=== PATIENT | female | born 1955 | race Caucasian/White ===

== ENCOUNTER 2017-01-15 15:57 | Inpatient (IN) | payer BC ==
--- NOTE | ~2017-01-15 | PUL ---
[address] [place]. [address] NAME: ZACHARY HAQ : 53 STATUS : DIS IN PAT#: [id number] AGE: 61 ADM/REG DATE : 01/15/17 MR#: [id number] REPORT SERV DATE: 01/23/17 DICTATED BY: ANIKA CARBAJAL DATE: 01/22/17 REPORT STATUS : Draft TRANSCRIBED BY: MODL DATE: 01/22/17 PULMONARY FUNCTION TEST PROCEDURE PERFORMED: Overnight oximetry. Study performed on room air. Recorded time was slightly over six hours. The patient had mild desaturation though the longest continuous desaturation was only 1 minute and 40 seconds. The patient did have a high desaturation event index. IMPRESSION: Borderline study, the patient did not meet the strictest criteria for supplemental oxygen at night, but does have some desaturation and meets the lower criteria based on just the total amount of time. Clinical correlation is recommended. If clinically indicated consider a formal sleep study. PEDRO LUIS/ENZO Anika Carbajal M.D. / [id number] CC: Tc Mar CHELSEY
--- NOTE | ~2017-01-15 | HP ---
History And Physical [id number] [facility] [place]. [address] NAME: ZACHARY HAQ : 53 STATUS : ADM IN [facility]#: [id number] AGE: 61 ADM/REG DATE : 01/15/17 MR#: [id number] REPORT SERV DATE: 01/15/17 DICTATED BY: TAYLER MORRIS DATE: 01/15/17 REPORT STATUS : Draft TRANSCRIBED BY: MODL DATE: 01/15/17 DATE OF ADMISSION: 01/15/2017 IDENTIFYING DATA: A 61-year-old white female, whose PCP is Dr. Elizabeth Odom; Podiatry, Dr. Serrano; Endocrinology, Dr. Graff; primary therapist used to be Dr. Thayer and then her insurance changed, she does not have one now; Sleep Medicine, Dr. Steve. CHIEF COMPLAINT: Shortness of breath. HISTORY OF PRESENT ILLNESS: This history of present illness is obtained by talking directly with the ER provider as well as with the patient and I reviewed the ER chart and [employer]. The patient has chronic stable dyspnea that got much worse over the last three-five days. It got to the point where she had not just dyspneic on exertion, but also dyspneic at rest. She was not able to sleep well. She had orthopnea and PND. She states that she has gained 30 pounds in the last month. Her legs are much more swollen than normal. She has no fever, no cough. She states she went to her PCP and they ordered an outpatient echo, but she just has not been able to get it done. No medication changed. In the ER, she was found to be uncomfortable and short of breath, and we were asked to see her and admit her to the hospital. REVIEW OF SYSTEMS: She states she has some vague anterior chest pain versus what she calls heartburn. She has nausea that is chronic. She has some dysuria and has a hard time emptying her bladder. She states she has to stand up partially to do it. She is, according to her, not very hungry except at 3 o'clock in the morning and then she can eat like crazy. She denies fever, vomiting, diarrhea, rectal bleeding, melena. She has had some recent right hand tremor. She states she has had abdominal pain "all of my life." She states she is not wearing any home oxygen. PAST MEDICAL HISTORY: She claims allergy to penicillin, ibuprofen, amoxicillin. She denies any history of asthma, COPD, myocardial infarction, peptic ulcer, biliary tract disease, liver disease, kidney stones. She has diabetes mellitus type 2 for more than 10 years. She has significant peripheral neuropathy. She also has a lot of restless legs, pain and fibromyalgia along with osteoarthritis and a chart history of seronegative rheumatoid arthritis for which she used to be on Humira. Complicating her peripheral neuropathy and diabetes, she has had osteomyelitis and has recently had multiple surgeries for this with Dr. Serrano including on 11/02/2016, for a delayed closure of previous surgery from 10/27/2016 where he drained abscess of right 2nd toe and did amputate the distal right 2nd toe for osteomyelitis and then back on 09/26/2016, [facility] [address] [address] NAME: ZACHARY HAQ : 53 STATUS : ADM IN PAT#: [id number] AGE: 61 ADM/REG DATE : 01/15/17 MR#: [id number] REPORT SERV DATE: 01/15/17 DICTATED BY: TAYLER MORRIS DATE: 01/15/17 REPORT STATUS : Draft TRANSCRIBED BY: ENZO DATE: 01/15/17 she had a delayed closure of a surgery he had done on 09/21/2016, where he resected a portion of the 2nd toe that had osteomyelitis. She has hypertension. She has significant obesity with obstructive sleep apnea, but admits she cannot wear her CPAP very comfortably, so she does not. She has stage 3 chronic kidney disease. She has chronic leg stasis changes with previous cellulitis. She has a history of iron deficiency anemia. She has had previous major depression. She has in the past what she calls stress-induced seizures and she states she had a previous thalamic stroke, but she has no idea which side it was on. She states she has large thyroid nodules and she had previous endometrial cancer treated with surgery. HOME MEDICATIONS: Artificial tears p.r.n., Voltaren 1% gel topical q.i.d. to the right hand, Apresoline 25 mg t.i.d., NovoLog in her insulin pump, Prevacid 30 mg daily, Paxil 40 mg daily, Mirapex 3 mg every evening and she states she occasionally has to take a second dose. PAST SURGICAL HISTORY: She has had a hysterectomy for cancer, right total knee arthroplasty, and right cataract surgery. SOCIAL HISTORY: She denies tobacco or alcohol intake. She is a retired [employer] teacher. She lives alone. She used to use a cane, but she has had to use a walker since her August and September surgeries. FAMILY HISTORY: Mother with some type of cancer. Father had diabetes and heart attack. DIAGNOSTIC DATA: Chest x-ray as a single portable film today reveals a shallow inspiratory size, but the right side of her heart looks especially large. There is some haziness in the right lung base, but that may just be related to obesity and the shallow inspiratory size, per my interpretation. EKG done today at 1316 hours reveals sinus arrhythmia, LVH voltage is otherwise unremarkable, per my interpretation. Sodium 136, potassium 4.7, chloride 102, CO2 is 29, BUN 36, creatinine 1.56, glucose is 218, calcium 9.3, magnesium 2.0. Troponin less than 0.02. B-natriuretic peptide is 52.4. Her last A1c on 10/27/2016 was 10.2. Today's white count is 17.3, hemoglobin 9.1, and platelets are 253,000. Her previous white count was 8.6 on 11/02/2016. Today's pro-time is 14.8, INR 1.2, and PTT is 31.1. Urinalysis today as a voided clean catch, protein 30, hyaline casts 8, it is otherwise unremarkable. PHYSICAL EXAMINATION: VITAL SIGNS: Temp 98, pulse 80, respirations 18, blood pressure 149/114, O2 saturation is 97% on 2 L. GENERAL: A well-developed, obese female, who appears restless and uncomfortable and short of breath at rest. HEENT: Head is atraumatic. Pupils are equal, round, and reactive to light. Extraocular motions are intact. No scleral icterus noted. Ear canals and TMs unremarkable. Normal hearing. No inflammatory changes noted to the ears externally. Nose, noninflamed externally. Septum midline. Nares patent. Mouth, moist. Good gag. No redness of the throat, gums, or lips. NECK: Supple. No lymph node or thyroid enlargement. The carotids have good pulses. No History And Physical [id number] [place]. [address] NAME: ZACHARY HAQ : 53 STATUS : ADM IN PAT#: [id number] AGE: 61 ADM/REG DATE : 01/15/17 MR#: [id number] REPORT SERV DATE: 01/15/17 DICTATED BY: TAYLER MORRIS DATE: 01/15/17 REPORT STATUS : Draft TRANSCRIBED BY: MODL DATE: 01/15/17 bruits. There is jugular venous distention of about 5 cm. LUNGS: Shallow inspiratory size. She is tachypneic at 22 breaths per minute. Fair air flow. HEART: Regular rate and rhythm without gallop, click, murmur, or rub. ABDOMEN: Very obese. Bowel sounds positive. Soft, nondistended. When I palpate, she states she is mildly tender diffusely and she states it has been that way her entire life. EXTREMITIES: She has 3+ edema on her feet. She has a dressing over her left first toe. She has 2+ calf edema, 1+ thigh edema bilaterally. She has some chronic venous stasis changes noted. NEUROLOGIC: She is alert, oriented, and cooperative. She is uncomfortable. She has restlessness especially of her legs. She has a mild tremor at rest on her right arm. No Babinski. No clonus noted. Motor strength is 3/5 in all four extremities. Cranial nerves 2 through 12 grossly normal. ASSESSMENT: 1. Acute decompensation of cor pulmonale. 2. Leukocytosis of unclear etiology. 3. Uncontrolled hypertension. 4. See past medical history. PLAN: 1. Admit to a cardiac telemetry. 2. We are going to check a blood gas. We are going to get a new echocardiogram with attempt to see her pulmonary artery pressures. We will initiate diuresis. We will supplement her with oxygen if needed. We will try to get her to wear her CPAP with sleep. She does not want to start her insulin pump until her brings it in tomorrow, so we will use some basal bolus in the meantime. 3. We will check a D-dimer. If it is elevated, we will start with a V/Q scan since she does have a creatinine elevation of 1.56. BERNIE/ENZO Tayler Morris M.D. / [id number] CC: Tc Mcwilliams M.D.
--- NOTE | ~2017-01-15 | DS ---
Discharge Summary [address] [place]. [address] NAME: ZACHARY HAQ : 53 STATUS : DIS IN PAT#: [id number] AGE: 61 ADM/REG DATE : 01/15/17 MR#: [id number] REPORT SERV DATE: 01/24/17 DICTATED BY: CECY AVENDANO DATE: 01/20/17 REPORT STATUS : Draft TRANSCRIBED BY: MODBrionna DATE: 01/20/17 ADMISSION DATE: 01/15/2017 DISCHARGE DATE: 01/20/2017 The patient was admitted to the Hospitalist Service. CONSULTANTS: Dr. Colt Gonzalez, Infectious Disease and Dr. Serrano, Podiatry. DISCHARGE DIAGNOSES: 1. Cor pulmonale with acute decompensation, resolved. 2. Left lower extremity cellulitis with toe wound. Wound culture grew MRSA and group B Strep. 3. Diabetes mellitus type 2, uncontrolled. Hemoglobin A1c 8.7. Currently on insulin pump at 50% of her basal rate. 4. Elevated D-dimer. 5. Hypertension. 6. Chronic kidney disease, stage 3. 7. Chronic anemia. 8. Obstructive sleep apnea, intolerant of CPAP. 9. Morbid obesity. 10.Restless legs syndrome. IMAGING AND DIAGNOSTICS: 1. 01/16/2017, echocardiogram revealed left ventricular systolic function intact at 62%, mild diastolic dysfunction with mild left atrial dilatation, right ventricle systolic function intact. No significant valvular disease. 2. 01/17/2017, venous duplex of left lower extremity shows no DVT, however, reactive lymph nodes in the left inguinal region may be reactive. 3. 01/19/2017, a chest x-ray, PA and lateral, showed developing prominence of bronchovesicular markings, may represent mild edema or be related to chronic bronchitis. 4. Left foot x-ray on 01/15/2017 showed calcaneal spurs. No evidence of acute left foot abnormality. 5. 01/19/2017, ventilation-perfusion scan, rule out PE. Study is very low probability for pulmonary embolus, central deposition of the ventilation tracers consistent with airway disease. 6. Bone scan on 01/16/2017 showed persistent bony remodeling in the left midfoot. No destructive process identified in its region on plain radiographs and the finding is unchanged from September of 2016. Concern was then for the right foot which does not show abnormal uptake on today's study. Findings on today's and the prior 3-phase examination make simply be due to severe degenerative arthropathy. No firm evidence of osteonecrosis is found. DISCHARGE LABORATORY STUDIES: 1. On 01/20/2017, CBC revealed a white count of 8.5, hemoglobin 8.2, hematocrit 26.2, platelets 321,000. Discharge Summary [address] [place]. [address] NAME: ZACHARY HAQ : 53 STATUS : DIS IN PAT#: [id number] AGE: 61 ADM/REG DATE : 01/15/17 MR#: [id number] REPORT SERV DATE: 01/24/17 DICTATED BY: CECY AVENDANO DATE: 01/20/17 REPORT STATUS : Draft TRANSCRIBED BY: ENZO DATE: 01/20/17 2. Discharge basic metabolic panel on 01/20/2017 revealed a sodium of 134, potassium 4.1, CO2 of 29, BUN 44, creatinine 1.61, GFR 34, glucose 178, calcium 9.4, magnesium 2.3. 3. 01/19/2017, final wound culture revealed abundant growth of methicillin-resistant Staphylococcus aureus sensitive to vancomycin with group Strep B. 4. D-dimer quantitative on 01/15/2017 resulted 0.99. HISTORY OF PRESENT ILLNESS: For complete history, please refer to admission H and P by Dr. Johnson Morris on 01/15/2017. Briefly, Ms. Haq is a 61-year-old, obese, female, who presented to the emergency room with shortness of breath. She reports that she has gained over 30 pounds in the last month. Her legs were swollen more than normal. She has orthopnea and PND and the Hospitalist Service was asked to admit the patient for further evaluation and treatment. HOSPITAL COURSE: Ms. Haq was admitted to a telemetry bed with admission diagnosis of cor pulmonale and hypertension uncontrolled and shortness of breath. An echocardiogram was requested; results are as above. She was provided with DVT prophylaxis, 2 g sodium, 1500 mL fluid restriction diet and scheduled IV diuresis, Bumex 2 mg IV q.8 hours. Her insulin pump was discontinued on admission and she was given a dose of NPH insulin. A D-dimer was ordered; results are as above. If the D-dimer was elevated, she was to have a V/Q ventilation scan to rule out a DVT. However, bone scan was ordered by Dr. Serrano to rule out osteomyelitis and since the patient had the bone scan initially, she was unable to have a V/Q scan for at least [address] Serrano did follow the patient throughout her hospitalization. I have consulted Infectious Disease on 01/16/[address] Serrano's request. I did start Ms. Haq on vancomycin 1 g IV on this date, with pharmacy to follow up with dosing. With her left lower extremity swelling, I did order a venous duplex to rule out DVT; results are as above. Later in the day on 01/16/2017, Dr. Jose Cruz Gonzalez saw Ms. Haq in consultation and added cefepime 2 g IV q.12. Later on the afternoon of 01/16/2017, Ms. Haq was placed on an IV insulin drip and placed her home insulin pump as she had previously hypoglycemic episodes in the hospital when she was on her insulin pump. On 01/17/2017, Dr. Gonzalez discontinued Ms. Haq IV cefepime and continued her IV vancomycin. She had some issues with constipation. Stool softeners and laxatives were added on this date. With her IV diuresis, she was doing well. Her shortness of breath improved. Her IV antibiotics were continued. The bone scan results showed no evidence of osteomyelitis as above. She was back on her insulin pump on 01/18/2017 at half of her basal rate with recommendations from the family educator, Monica De La O RN. Her shortness of breath improved on 01/19/2017. She did complain of persistent shortness of breath; therefore, the V/Q scan was performed, which showed low probability for PE. She was given further IV diuresing with Bumex scheduled doses on 01/18/2017 and 01/19/2017. On 01/19/2017, Dr. Gonzalez ordered a PICC line for home IV antibiotics, vancomycin for a total of two weeks. She did have some complaints of yeast like rash in the inguinal folds and abdominal folds. She was treated with nystatin powder for this. I did do an overnight pulse oximetry from 01/19/2017 through 01/20/2017 which showed several episodes of desaturation which qualified her for home oxygen. However, with previous home CPAP prescription, the patient was unable to qualify to receive home oxygen per Case Management. On 01/20/2017, she continued to improve. Her vital signs were stable. She was no longer complaining of any dyspnea on exertion and her weight was down from admission. On the afternoon of 01/20/2017, she received a PICC line for home antibiotics. Initially, Case Discharge Summary [address] [place]. [address] NAME: ZACHARY HAQ : 53 STATUS : DIS IN PAT#: [id number] AGE: 61 ADM/REG DATE : 01/15/17 MR#: [id number] REPORT SERV DATE: 01/24/17 DICTATED BY: CECY AVENDANO DATE: 01/20/17 REPORT STATUS : Draft TRANSCRIBED BY: ENZO DATE: 01/20/17 Management stated that they have searched over 9 home health care companies who were unable to provide care for the patient. However, at the end of the day, they did arrange for a home health care company to provide IV antibiotic infusion for Ms. Haq at home after Ms. Haq had a friend come and learn how to do the home infusion initially. So, at the end of the day, it was felt that she was able to be discharged home safely with her PICC line intact and follow up arranged for the patient. So, she is discharged home in stable condition on the early evening of 01/20/2017. DISCHARGE INSTRUCTIONS: Include: 1. Diet 1800 calorie ADA diet is recommended. 2. Activity as tolerated. DISCHARGE MEDICATIONS: 1. Carvedilol 6.25 mg p.o. b.i.d. 2. Colace 100 mg p.o. b.i.d. 3. Insulin pump at 50% of her basal rate. 4. Nystatin powder topically three times a day to affected areas. 5. Paxil 40 mg p.o. daily. 6. Mirapex 3 mg p.o. daily. 7. Spironolactone 50 mg p.o. with breakfast. 8. Trazodone 200 mg p.o. at bedtime. 9. Apresoline 25 mg p.o. t.i.d. 10.Silvadene cream to both legs as directed. 11.Prevacid 30 mg p.o. daily with breakfast. 12.Demadex 20 mg p.o. b.i.d. 13.Artificial tears p.r.n. both eyes. 14.Vancomycin 1 g IV q.24 hours for a total of two weeks. 15.Voltaren topical four times a day p.r.n. In addition, Ms. Haq was instructed to elevate her left lower extremity as much as possible. She has a new patient followup with Payton Cooper, nurse practitioner at the diagnostic center on 01/26/2017 at 10:45. She was also instructed to follow up with Dr. Serrano in one week. We did discuss following up with Dr. Graff within the next two weeks if she has a new insulin pump at home that is waiting for application and instruction. CIPRIANO/ENZO YNES Figueroa / [id number] CC: Yoana Burkett M.D. [facility] Discharge Summary [address] [address] NAME: ZACHARY HAQ : 53 STATUS : DIS IN [facility]#: [id number] AGE: 61 ADM/REG DATE : 01/15/17 MR#: [id number] REPORT SERV DATE: 01/24/17 DICTATED BY: CECY AVENDANO DATE: 01/20/17 REPORT STATUS : Draft TRANSCRIBED BY: ENZO DATE: 01/20/17 Devan Hammond M.D. PAYTON COOPER NP
[2017-01-15 14:33] LABS: WBC (NOT ORDERED) (RFLEX) 0 (0-5)
[2017-01-15 14:37] LABS: BASOPHILS 0.2 %; BASOPHILS ABSOLUTE 0.03 10/3/uL (0.0-0.16); EOSINOPHILS 0.6 %; HEMOGLOBIN 9.1 g/dL (12.0-16.0); IMMATURE GRANULOCYTES 0.3 %; IMMATURE GRANULOCYTES ABSOLUTE 0.06 10/3/uL (0.0-0.11); LYMPHOCYTES 4.6 %; LYMPHOCYTES ABSOLUTE 0.79 10/3/uL (0.67-4.30); MEAN CORPUS HGB CONC 31.8 g/dL (32.0-36.0); MEAN CORPUSCULAR HEMOGLOB 26.4 pg (26.0-34.0); MEAN CORPUSCULAR VOLUME 82.9 fL (80-100); MEAN PLATELET VOLUME 10.1 fL (9.2-13.0); MONOCYTES 4.6 %; MONOCYTES ABSOLUTE 0.79 10/3/uL (0.21-1.20); NEUTROPHILS 89.7 %; NEUTROPHILS ABSOLUTE 15.53 10/3/uL (2.02-8.40); PLATELET COUNT 253 10/3/uL (150-400); RBC DISTRIBUTION WIDTH 15.4 % (12.0-16.0); RED CELL COUNT 3.45 10/6/uL (4.0-5.6)
[2017-01-15 14:38] LABS: ER CBC TAT 0 Hrs 05 Mins; HEMATOCRIT 28.6 % (36.0-48.0); MANUAL DIFF NO %; WHITE BLOOD CELLS 17.3 10/3/uL (4.5-10.5)
[2017-01-15 14:43] LABS: ASCORBIC ACID (UR NOT ORDER) NEG (NEG); BILIRUBIN, URINE NEGATIVE (NEG); ER URINALYSIS TAT 0 Hrs 10 Mins; KETONE, URINE NEGATIVE (NEG); LEUKOCYTE ESTERASE(NOT OR NEG (NEG); NITRITE (URINE) NEG (NEG)
[2017-01-15 14:45] LABS: INTERNATIONAL NORMAL RATI 1.2 UNITS (-); PARTIAL THROMBO TIME 31.1 SEC (22.5-37.2); PROTIME (NOT ORD) 14.8 SEC (12.0-14.5)
[2017-01-15 14:54] LABS: BUN (BLOOD UREA NITROGEN) 36 MG/DL (6-23); CALCIUM, SERUM 9.3 MG/DL (8.5-10.4); CHEST PAIN PROFILE TAT 0 Hrs 21 Mins; CHLORIDE, SERUM 102 MMOL/L (96-112); CO2 (CARBON DIOXIDE) 29 MMOL/L (24-34); CREATININE 1.56 MG/DL (0.55-1.02); GFR AFRICAN AMERICAN 41 ML/MIN (>=60); GFR NON AFRICAN AMERICAN 35 ML/MIN (>=60); GLUCOSE, SERUM 218 MG/DL (60-99); POTASSIUM, SERUM 4.7 MMOL/L (3.5-5.3); SODIUM, SERUM 136 MMOL/L (135-148); TROPONIN I <0.02 NG/ML (<0.05)
[~2017-01-15 15:57] MED LIST: *UNABLE2; APRES25 PO; APRES50 PO; COREG3 PO; DEMA20 PO; DURICEF PO; FLORASTOR250 MG PO; GLUCPH PO; HUMAPUMP SC; HYZAAR1 TAB PO; IODOSORB TOP; K500 PO; KLOR-CON M2020 MEQ PO; L40 PO; LEVAQUIN750 MG PO; MAGOX4 PO; MIRAPEX1 MG PO; MIRAPEX1.5 MG PO; NORCO1 TA1 PO; NOVLOGPUMP SC; NYSTATPOW TOP; PAX20 PO; PAXIL40 MG PO; PREV30 PO; SANTYL OINTMENT TOP; SAS500 PO; SPIRO50 PO; TRAZ100 PO; TRAZ50 PO; VIBRATAB100 MG PO
[2017-01-15] MEDS ORDERED: PAXIL40 MG PO (16:17)
[2017-01-15] MEDS ORDERED: PREV30 PO (16:17)
[2017-01-15] MEDS ORDERED: MIRAPEX1.5 MG PO (16:18)
[2017-01-15] MEDS ORDERED: SPIRO50 PO (16:18)
[2017-01-15] MEDS ORDERED: TRAZ100 PO (16:18)
[2017-01-15] MEDS ORDERED: NOVLOGPUMP SC (16:19)
[2017-01-15] MEDS ORDERED: DEMA20 PO (16:19)
[2017-01-15] MEDS ORDERED: APRES25 PO (16:19)
[2017-01-15] MEDS ORDERED: SILVER SULFADIAZINE TOP (16:22)
[2017-01-15] MEDS ORDERED: REFRESH OPH (16:23)
[2017-01-15] MEDS ORDERED: EYE INJECTIONS IO (16:23)
[2017-01-15] MEDS ORDERED: VOLTAREN1 % TOP (16:29)
[2017-01-15] MEDS ORDERED: COREG3 PO (16:35)
[2017-01-15 16:38] LABS: PROCALCITONIN <0.05 ng/mL (<0.5)
[2017-01-15 20:12] LABS: ALBUMIN 3.4 G/DL (3.5-5.0); DIRECT BILIRUBIN 0.1 MG/DL (0.0-0.4); INDIRECT BILIRUBIN(NOT ORDER) 0.3 MG/DL (0.1-0.9); SGOT(AST) 11 U/L (5-40); SGPT(ALT) 21 U/L (5-65); TOTAL BILIRUBIN 0.4 MG/DL (0-1.2); TOTAL PROTEIN 7.6 G/DL (6.0-8.5)
[2017-01-15 20:17] LABS: ALKALINE PHOSPHATASE 146 U/L (45-117)
[2017-01-16 06:23] LABS: BASOPHILS 0.2 %; BASOPHILS ABSOLUTE 0.02 10/3/uL (0.0-0.16); EOSINOPHILS 0.3 %; EOSINOPHILS ABSOLUTE 0.04 10/3/uL (0.0-0.53); HEMOGLOBIN 8.8 g/dL (12.0-16.0); IMMATURE GRANULOCYTES 0.2 %; IMMATURE GRANULOCYTES ABSOLUTE 0.02 10/3/uL (0.0-0.11); LYMPHOCYTES 7.3 %; LYMPHOCYTES ABSOLUTE 0.87 10/3/uL (0.67-4.30); MANUAL DIFF NO %; MEAN CORPUS HGB CONC 31.4 g/dL (32.0-36.0); MEAN CORPUSCULAR HEMOGLOB 26.3 pg (26.0-34.0); MEAN CORPUSCULAR VOLUME 83.8 fL (80-100); MEAN PLATELET VOLUME 10.5 fL (9.2-13.0); MONOCYTES 5.1 %; MONOCYTES ABSOLUTE 0.61 10/3/uL (0.21-1.20); NEUTROPHILS 86.9 %; NEUTROPHILS ABSOLUTE 10.39 10/3/uL (2.02-8.40); PLATELET COUNT 261 10/3/uL (150-400); RBC DISTRIBUTION WIDTH 15.8 % (12.0-16.0); RED CELL COUNT 3.34 10/6/uL (4.0-5.6)
[2017-01-16 06:41] LABS: A/G RATIO 0.8 (0.7-1.9); ALBUMIN 3.3 G/DL (3.5-5.0); ALKALINE PHOSPHATASE 137 U/L (45-117); BUN (BLOOD UREA NITROGEN) 38 MG/DL (6-23); CALCIUM, SERUM 9.7 MG/DL (8.5-10.4); CHLORIDE, SERUM 99 MMOL/L (96-112); CO2 (CARBON DIOXIDE) 29 MMOL/L (24-34); CREATININE 1.73 MG/DL (0.55-1.02); GFR AFRICAN AMERICAN 36 ML/MIN (>=60); GFR NON AFRICAN AMERICAN 31 ML/MIN (>=60); GLOBULIN 4.2 G/DL (2.5-4.1); GLUCOSE, SERUM 276 MG/DL (60-99); POTASSIUM, SERUM 4.4 MMOL/L (3.5-5.3); SGOT(AST) 12 U/L (5-40); SGPT(ALT) 20 U/L (5-65); SODIUM, SERUM 134 MMOL/L (135-148); TOTAL BILIRUBIN 0.7 MG/DL (0-1.2); TOTAL PROTEIN 7.5 G/DL (6.0-8.5)
[2017-01-17 04:44] LABS: BASOPHILS 0.3 %; BASOPHILS ABSOLUTE 0.03 10/3/uL (0.0-0.16); EOSINOPHILS 1.1 %; EOSINOPHILS ABSOLUTE 0.11 10/3/uL (0.0-0.53); HEMOGLOBIN 8.1 g/dL (12.0-16.0); IMMATURE GRANULOCYTES 0.3 %; IMMATURE GRANULOCYTES ABSOLUTE 0.03 10/3/uL (0.0-0.11); LYMPHOCYTES 10.9 %; LYMPHOCYTES ABSOLUTE 1.07 10/3/uL (0.67-4.30); MEAN CORPUS HGB CONC 32.9 g/dL (32.0-36.0); MEAN CORPUSCULAR HEMOGLOB 28.1 pg (26.0-34.0); MEAN CORPUSCULAR VOLUME 85.4 fL (80-100); MEAN PLATELET VOLUME 10.6 fL (9.2-13.0); MONOCYTES 6.2 %; MONOCYTES ABSOLUTE 0.61 10/3/uL (0.21-1.20); NEUTROPHILS 81.2 %; NEUTROPHILS ABSOLUTE 7.94 10/3/uL (2.02-8.40); PLATELET COUNT 271 10/3/uL (150-400); RED CELL COUNT 2.88 10/6/uL (4.0-5.6); WHITE BLOOD CELLS 9.8 10/3/uL (4.5-10.5)
[2017-01-17 04:47] LABS: HEMATOCRIT 24.6 % (36.0-48.0); MANUAL DIFF NO %
[2017-01-17 04:57] LABS: ALBUMIN 3.1 G/DL (3.5-5.0); CALCIUM, SERUM 9.3 MG/DL (8.5-10.4); CHLORIDE, SERUM 100 MMOL/L (96-112); CO2 (CARBON DIOXIDE) 29 MMOL/L (24-34); CREATININE 1.83 MG/DL (0.55-1.02); GFR AFRICAN AMERICAN 34 ML/MIN (>=60); GFR NON AFRICAN AMERICAN 29 ML/MIN (>=60); PHOSPHORUS, SERUM 4.1 MG/DL (2.5-4.5); POTASSIUM, SERUM 4.1 MMOL/L (3.5-5.3); SODIUM, SERUM 138 MMOL/L (135-148)
[2017-01-17 05:00] LABS: BUN (BLOOD UREA NITROGEN) 43 MG/DL (6-23); GLUCOSE, SERUM 162 MG/DL (60-99)
[2017-01-18 05:29] LABS: BUN (BLOOD UREA NITROGEN) 42 MG/DL (6-23); CALCIUM, SERUM 9.5 MG/DL (8.5-10.4); CHLORIDE, SERUM 102 MMOL/L (96-112); CO2 (CARBON DIOXIDE) 26 MMOL/L (24-34); CREATININE 1.54 MG/DL (0.55-1.02); GFR AFRICAN AMERICAN 41 ML/MIN (>=60); GFR NON AFRICAN AMERICAN 36 ML/MIN (>=60); GLUCOSE, SERUM 158 MG/DL (60-99); POTASSIUM, SERUM 4.5 MMOL/L (3.5-5.3); SODIUM, SERUM 137 MMOL/L (135-148)
[2017-01-18 05:41] LABS: BASOPHILS 0.3 %; BASOPHILS ABSOLUTE 0.02 10/3/uL (0.0-0.16); EOSINOPHILS 2.2 %; EOSINOPHILS ABSOLUTE 0.17 10/3/uL (0.0-0.53); HEMOGLOBIN 7.9 g/dL (12.0-16.0); IMMATURE GRANULOCYTES 0.4 %; IMMATURE GRANULOCYTES ABSOLUTE 0.03 10/3/uL (0.0-0.11); LYMPHOCYTES 11.2 %; LYMPHOCYTES ABSOLUTE 0.88 10/3/uL (0.67-4.30); MEAN CORPUSCULAR VOLUME 85.5 fL (80-100); MEAN PLATELET VOLUME 11.7 fL (9.2-13.0); MONOCYTES ABSOLUTE 0.47 10/3/uL (0.21-1.20); NEUTROPHILS 79.9 %; NEUTROPHILS ABSOLUTE 6.28 10/3/uL (2.02-8.40); PLATELET COUNT 295 10/3/uL (150-400); RED CELL COUNT 3.04 10/6/uL (4.0-5.6); WHITE BLOOD CELLS 7.9 10/3/uL (4.5-10.5)
[2017-01-18 05:45] LABS: MANUAL DIFF NO %; MEAN CORPUS HGB CONC 30.4 g/dL (32.0-36.0)
[2017-01-19 04:35] LABS: BASOPHILS 0.2 %; BASOPHILS ABSOLUTE 0.02 10/3/uL (0.0-0.16); EOSINOPHILS ABSOLUTE 0.24 10/3/uL (0.0-0.53); HEMOGLOBIN 8.1 g/dL (12.0-16.0); IMMATURE GRANULOCYTES 0.1 %; IMMATURE GRANULOCYTES ABSOLUTE 0.01 10/3/uL (0.0-0.11); LYMPHOCYTES 14.8 %; MEAN CORPUSCULAR HEMOGLOB 27.6 pg (26.0-34.0); MEAN PLATELET VOLUME 10.8 fL (9.2-13.0); MONOCYTES ABSOLUTE 0.65 10/3/uL (0.21-1.20); NEUTROPHILS 73.9 %; NEUTROPHILS ABSOLUTE 5.99 10/3/uL (2.02-8.40); PLATELET COUNT 294 10/3/uL (150-400); RBC DISTRIBUTION WIDTH 15.9 % (12.0-16.0); RED CELL COUNT 2.94 10/6/uL (4.0-5.6); WHITE BLOOD CELLS 8.1 10/3/uL (4.5-10.5)
[2017-01-19 04:37] LABS: MANUAL DIFF NO %; MEAN CORPUS HGB CONC 32.4 g/dL (32.0-36.0)
[2017-01-19 04:52] LABS: BUN (BLOOD UREA NITROGEN) 43 MG/DL (6-23); CALCIUM, SERUM 9.5 MG/DL (8.5-10.4); CHLORIDE, SERUM 100 MMOL/L (96-112); GFR AFRICAN AMERICAN 34 ML/MIN (>=60); GFR NON AFRICAN AMERICAN 30 ML/MIN (>=60); GLUCOSE, SERUM 156 MG/DL (60-99); POTASSIUM, SERUM 4.3 MMOL/L (3.5-5.3); SODIUM, SERUM 136 MMOL/L (135-148)
[2017-01-19 04:54] LABS: CO2 (CARBON DIOXIDE) 31 MMOL/L (24-34)
[2017-01-20 05:13] LABS: BASOPHILS 0.2 %; BASOPHILS ABSOLUTE 0.02 10/3/uL (0.0-0.16); EOSINOPHILS 2.6 %; EOSINOPHILS ABSOLUTE 0.22 10/3/uL (0.0-0.53); HEMATOCRIT 26.2 % (36.0-48.0); HEMOGLOBIN 8.2 g/dL (12.0-16.0); IMMATURE GRANULOCYTES 0.4 %; IMMATURE GRANULOCYTES ABSOLUTE 0.03 10/3/uL (0.0-0.11); LYMPHOCYTES ABSOLUTE 1.45 10/3/uL (0.67-4.30); MEAN CORPUS HGB CONC 31.3 g/dL (32.0-36.0); MEAN CORPUSCULAR HEMOGLOB 26.1 pg (26.0-34.0); MEAN CORPUSCULAR VOLUME 83.4 fL (80-100); MEAN PLATELET VOLUME 10.4 fL (9.2-13.0); MONOCYTES 7.1 %; MONOCYTES ABSOLUTE 0.61 10/3/uL (0.21-1.20); NEUTROPHILS 72.7 %; NEUTROPHILS ABSOLUTE 6.21 10/3/uL (2.02-8.40); PLATELET COUNT 321 10/3/uL (150-400); RBC DISTRIBUTION WIDTH 15.7 % (12.0-16.0); RED CELL COUNT 3.14 10/6/uL (4.0-5.6); WHITE BLOOD CELLS 8.5 10/3/uL (4.5-10.5)
[2017-01-20 05:19] LABS: MANUAL DIFF NO %
[2017-01-20 05:25] LABS: BUN (BLOOD UREA NITROGEN) 44 MG/DL (6-23); CALCIUM, SERUM 9.4 MG/DL (8.5-10.4); CHLORIDE, SERUM 97 MMOL/L (96-112); CO2 (CARBON DIOXIDE) 29 MMOL/L (24-34); CREATININE 1.61 MG/DL (0.55-1.02); GFR AFRICAN AMERICAN 39 ML/MIN (>=60); GFR NON AFRICAN AMERICAN 34 ML/MIN (>=60); GLUCOSE, SERUM 178 MG/DL (60-99); POTASSIUM, SERUM 4.1 MMOL/L (3.5-5.3); SODIUM, SERUM 134 MMOL/L (135-148)
[2017-05-30] MEDS ORDERED: COREG6 PO (13:35)
[2017-05-30] MEDS ORDERED: L40 PO (13:35)
[2017-05-30] MEDS ORDERED: ILEVRO1.7 ML OPH (13:36)
[2017-05-30] MEDS ORDERED: MYCOSOINT TOP (13:36)
[2017-05-30] MEDS ORDERED: PAXIL40 MG PO (13:37)
[2017-05-30] MEDS ORDERED: PREV30 PO (13:37)
[2017-05-30] MEDS ORDERED: TRESIBA FL200 UNIT/1 SC (13:37)
[2017-05-30] MEDS ORDERED: MIRAPEX1.5 MG PO (13:38)
[2017-05-30] MEDS ORDERED: TRAZ100 PO (13:38)
[2017-05-30] MEDS ORDERED: NOVOPEN SC (13:38)
[2017-05-30] MEDS ORDERED: EZFE 200200 MG PO (13:39)
== END 2017-01-20 21:23 | disposition home health service (06) | DRG 315 ==
LOC: ER 15:57 → 2SO 17:54
PROVIDERS: Emergency Medicine; Hospitalist; Nurse Practitioner
PROC: 02HV33Z Insertion of Infusion Device into Superior Vena Cava, Percutaneous Approach (ICD-10-PCS; principal; 2017-01-20)
PROC: 4A02X4A Measurement of Cardiac Electrical Activity, Guidance, External Approach (ICD-10-PCS; 2017-01-20)
DX: I27.81 Cor pulmonale (chronic) (principal); M86.671 Other chronic osteomyelitis, right ankle and foot; B37.89 Other sites of candidiasis; N17.9 Acute kidney failure, unspecified; E08.622 Diabetes mellitus due to underlying condition with other skin ulcer; I50.32 Chronic diastolic (congestive) heart failure; I13.0 Hypertensive heart and chronic kidney disease with heart failure and stage 1 through stage 4 chronic kidney disease, or unspecified chronic kidney disease; N18.3 Chronic kidney disease, stage 3 (moderate); E66.01 Morbid (severe) obesity due to excess calories; E10.621 Type 1 diabetes mellitus with foot ulcer; E10.65 Type 1 diabetes mellitus with hyperglycemia; L03.032 Cellulitis of left toe; B95.62 Methicillin resistant Staphylococcus aureus infection as the cause of diseases classified elsewhere; L97.511 Non-pressure chronic ulcer of other part of right foot limited to breakdown of skin; E10.42 Type 1 diabetes mellitus with diabetic polyneuropathy; D72.829 Elevated white blood cell count, unspecified; E10.8 Type 1 diabetes mellitus with unspecified complications; Z96.41 Presence of insulin pump (external) (internal); E66.9 Obesity, unspecified; E04.1 Nontoxic single thyroid nodule; F32.9 Major depressive disorder, single episode, unspecified; I87.8 Other specified disorders of veins; Z96.651 Presence of right artificial knee joint; L03.031 Cellulitis of right toe; G47.33 Obstructive sleep apnea (adult) (pediatric); G25.81 Restless legs syndrome; D64.9 Anemia, unspecified; R09.02 Hypoxemia; Z88.0 Allergy status to penicillin; Z88.1 Allergy status to other antibiotic agents; Z88.6 Allergy status to analgesic agent; Z79.4 Long term (current) use of insulin; Z85.89 Personal history of malignant neoplasm of other organs and systems; Z86.73 Personal history of transient ischemic attack (TIA), and cerebral infarction without residual deficits; Z82.49 Family history of ischemic heart disease and other diseases of the circulatory system; Z83.3 Family history of diabetes mellitus
CPT/HCPCS: 36569; 71010; 71020; 73630-LT; 78306; 78315; 78582; 80048; 80053; 80069; 80076; 80202; 81001; 82962; 83036; 83735; 83880; 84145; 84484; 85025; 85379; 85610; 85730; 87070; 87077; 87186; 87205; 93306; 93971; 94762; 99285; A9270-GY; A9540; A9561; A9567; C1751; J0692; J3370

== ENCOUNTER 2017-01-23 14:48 | Inpatient (IN) | payer BC ==
--- NOTE | ~2017-01-23 | DS ---
Discharge Summary [facility] [address] [place]. [address] NAME: ZACHARY HAQ : 53 STATUS : DIS IN PAT#: [id number] AGE: 61 ADM/REG DATE : 01/23/17 MR#: [id number] REPORT SERV DATE: 01/26/17 DICTATED BY: GARTH NICKERSON DATE: 01/25/17 REPORT STATUS : Draft TRANSCRIBED BY: ENZO DATE: 01/25/17 ADMISSION DATE: 01/23/2017 DISCHARGE DATE: 01/25/2017 DISCHARGE DIAGNOSES: 1. Left lower extremity cellulitis. 2. Diabetes mellitus type 2 on insulin pump. 3. Chronic kidney disease. 4. Normocytic anemia. 5. Obstructive sleep apnea. 6. Morbid obesity. 7. Restless legs syndrome. 8. History of seronegative rheumatoid arthritis. 9. History of methicillin-resistant Staphylococcus aureus, left lower extremity wound infection. 10.Chronic diastolic heart failure with preserved EF. DISCHARGE CONDITION: Stable. CONSULTATION: Infectious Disease Dr. Jose Cruz Gonzalez. INVASIVE PROCEDURE: None. HISTORY OF PRESENT ILLNESS: For detailed HPI, please make reference to Dr. Shubham Mcleod's dictation on 01/23/2017. In brief, this is a 61-year-old female, that is well known to [facility] here at [facility] with multiple admissions for lower extremity cellulitis. The patient was recently discharged from the hospital on 01/20/2017, presented back to the hospital for this later with similar complaint of worsening left lower extremity swelling, redness, pain, and fever. She also reported worsening drainage from the ulcer, and increased left foot pain that aching throbbing in nature, hence, she decided to the hospital for further evaluation. In the ER, vitals, temperature was 98.2, pulse was 77, blood pressure was 146/66. Physical examination was noted for left foot of the base of the second toe that has ulceration with purulent discharge. No erythema, no warm, no swelling, no tenderness noted. LABORATORY AND DIAGNOSTIC DATA: Showed Procalcitonin 1.14, WBC of 9.9, hemoglobin 8, hematocrit 25, sodium 136, potassium 4.7, and creatinine of 0.5. Chest x-ray shows chronic interstitial lung disease without any acute cardiopulmonary process. An assessment of left lower extremity cellulitis was made in the ER, the patient was admitted to the hospitalist service. HOSPITAL COURSE: 1. Left lower extremity cellulitis. The patient had an MRI of the left foot that showed abundant edema compatible with cellulitis. No abscess collection. No osteomyelitis in the region of non-healing ulcer reported by the patient. Infectious Disease was consulted, recommended to continue the patient's home dose of IV vancomycin. Of note, Discharge Summary [address] [place]. [address] NAME: ZACHARY HAQ : 53 STATUS : DIS IN PAT#: [id number] AGE: 61 ADM/REG DATE : 01/23/17 MR#: [id number] REPORT SERV DATE: 01/26/17 DICTATED BY: GARTH NICKERSON DATE: 01/25/17 REPORT STATUS : Draft TRANSCRIBED BY: ENZO DATE: 01/25/17 during the last admission, the patient was discharged home on IV vancomycin. The patient continued to receive IV vancomycin throughout the course of this admission per ID. ID do not suspect any new organism as a possible cause of worsening left lower extremity cellulitis. Hence, the patient was discharged home to continue IV vancomycin and follow up with Infectious Disease as an outpatient. 2. Diabetes mellitus type 2 on insulin pump at home. The patient presented to the hospital without insulin pump supplies, hence, during this admission the patient's blood sugar was controlled with sub-acute insulin. The patient's blood glucose remained tightly controlled without any significant complication. At the time of discharge, the patient was advised to continue home dose of insulin and continue insulin pump. The patient was advised to consider follow up with primary care physician. 3. Normocytic anemia. The patient's hemoglobin on presentation was 8.2 and remained stable throughout the course of her admission. No evidence of acute blood loss. Possible etiology of anemia, likely due to anemia of chronic disease, as well as anemia of chronic kidney disease. The patient was advised to continue follow up with primary care physician. 4. Chronic kidney disease, stage 3. The patient creatinine remained stable at 1.5, which is the patient's known baseline. DISCHARGE MEDICATIONS: 1. IV vancomycin as recommended by Infectious Disease. 2. Coreg 3.125 mg p.o. b.i.d. 3. Insulin aspart for insulin pump. 4. Prevacid 30 mg p.o. with breakfast. 5. Pramipexole 1.5 mg tablet p.o. every evening. 6. Spironolactone 50 mg tablet p.o. daily. 7. Torsemide 20 mg p.o. b.i.d. 8. Trazodone 200 mg p.o. at bedtime. 9. Hydralazine 25 mg p.o. t.i.d. 10.Prevacid 30 mg p.o. with breakfast. 11.silver sulfadiazine cream to apply to both legs. DISCHARGE FOLLOWUP: 1. Continue follow up with primary care physician within one to two weeks of discharge. 2. Continue follow up with Infectious Disease for antibiotics monitoring as an outpatient. DISCHARGE ACTIVITIES: As tolerated. DISCHARGE DISPOSITION: Home with home health and home PT. The patient did not qualify for SNF placement by Physical Therapy evaluation. DISCHARGE DIET: 1800 ADA calorie diet. Greater than 30 minutes was used to prepare this patient's discharge, reconcile medication, advise the patient on discharge plans and followup. Discharge Summary [address] [address] NAME: ZACHARY HAQ : 53 STATUS : DIS IN PAT#: [id number] AGE: 61 ADM/REG DATE : 01/23/17 MR#: [id number] REPORT SERV DATE: 01/26/17 DICTATED BY: GARTH NICKERSON DATE: 01/25/17 REPORT STATUS : Draft TRANSCRIBED BY: ENZO DATE: 01/25/17 MEHREEN/ENZO Garth Nickerson MD / [id number] CC: Garth Nickerson MD [facility],TAZ Gonzalez M.D.
--- NOTE | ~2017-01-23 | HP ---
History And Physical [place] [address] [place]. [address] NAME: ZACHARY HAQ : 53 STATUS : ADM IN [facility]#: [id number] AGE: 61 ADM/REG DATE : 01/23/17 MR#: [id number] REPORT SERV DATE: 01/24/17 DICTATED BY: JAZZ BECKETT DATE: 01/23/17 REPORT STATUS : Draft TRANSCRIBED BY: MODL DATE: 01/23/17 DATE OF ADMISSION: 01/23/2017 CHIEF COMPLAINT: A 61-year-old female presenting with recurrent left foot infection. HISTORY OF PRESENT ILLNESS: The patient's history was obtained through careful interview with the patient, coupled with review of [facility]. Earlier in January 2017 patient presented with cellulitis around the left great toe, for which she was hospitalized and found to be culture positive for MRSA. She was able to be sent home on IV vancomycin in good condition. Unfortunately, just in the last two days, she has developed increasing drainage from an ulcer under her left second toe, and she developed an increasing left foot pain, and aching throbbing in quality, 10/10 severity to the point where she cannot even stand. She describes orthopnea, increasing shortness of breath characterized by dyspnea on exertion with increasing lower extremity edema as well. She describes uncontrolled rheumatoid arthritis in her wrists, left knee, and ankles. She has been unable to see information technology administrator for several years "because of insurance reasons." She claims her diabetes is under good control on an insulin pump. She describes fevers, chills, nausea, but no vomiting. No diarrhea. REVIEW OF SYSTEMS: Otherwise, a 14-point review of systems was obtained, was negative. PAST MEDICAL HISTORY: 1. Diabetes. Hemoglobin A1c of 8.7, on 01/15/2017. 2. Recurrent bilateral foot ulcers with infection and osteomyelitis. 3. Seronegative rheumatoid arthritis, previously on Humira, and positive DESTINY 1 to 320 titer with nucleolar pattern, previously seen by Dr. Carter. 4. Obstructive sleep apnea, unable to tolerate CPAP. 5. Neuropathy. 6. Restless legs syndrome. 7. Fibromyalgia. 8. Osteomyelitis. 9. Depression. 10.Thyroid nodules. 11.Cor pulmonale with diastolic congestive heart failure. 12.Chronic kidney disease, stage 3, baseline creatinine of 1.5 to 1.8. 13.MRSA. 14.Chronic interstitial lung disease by chest x-ray. PAST SURGICAL HISTORY: History And Physical [address] [address] NAME: ZACHARY HAQ : 53 STATUS : ADM IN [facility]#: [id number] AGE: 61 ADM/REG DATE : 01/23/17 MR#: [id number] REPORT SERV DATE: 01/24/17 DICTATED BY: JAZZ BECKETT DATE: 01/23/17 REPORT STATUS : Draft TRANSCRIBED BY: ENZO DATE: 01/23/17 1. Hysterectomy for uterine cancer. 2. Right knee surgery. 3. Right toe amputation for osteomyelitis. 4. Appendectomy. ALLERGIES: PENICILLIN AND IBUPROFEN. SOCIAL HISTORY: No tobacco abuse. No alcohol abuse. 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 She ambulates with a walker. FAMILY HISTORY: Mother with lung cancer. Father with diabetes and heart. CURRENT MEDICATIONS: Include eye drops, Coreg 3.125 mg p.o. daily, diclofenac topical gel, hydralazine 25 mg p.o. t.i.d., insulin pump, Prevacid 30 mg p.o. daily, Paxil 40 mg p.o. daily, Mirapex 3 mg p.o. daily, Aldactone 50 mg p.o. daily, torsemide 20 mg p.o. b.i.d., trazodone 200 mg p.o. at bedtime, silver sulfadiazine topical, vancomycin 1 g IV daily. PHYSICAL EXAMINATION: VITAL SIGNS: Temperature 98.2, pulse 77, blood pressure 141/66, respiratory rate 18, and O2 saturation 95% on room air. GENERAL: A pleasant, cooperative female, in no significant distress at the time of evaluation. HEENT: Pupils equal, round, and reactive to light. No conjunctival pallor. No scleral icterus. Nares are patent. Oropharynx is clear of obstruction. Moist mucous membranes. NECK: Trachea midline. No thyromegaly. LYMPH: No cervical lymphadenopathy. No supraclavicular lymphadenopathy. RESPIRATORY: The patient does have crackles and what may be some wet rales even at the base of lungs. No wheezes. A slightly labored respiratory effort. CARDIOVASCULAR: Regular rate and rhythm. No murmurs, rubs, or gallops. The patient has deeply pitting lower extremity edema, left leg slightly more than the right. ABDOMEN: Soft, nontender, nondistended. Normal bowel sounds auscultated throughout. No hepatosplenomegaly. DERMATOLOGICAL: The patient's left foot at the base of her 2nd toe has an ulceration with purulent drainage. No surrounding erythema, heat, swelling, tenderness, and mild fluctuance. Otherwise pale peripheries. No cyanosis. Warm and dry extremities. PSYCHIATRIC: Normal affect. Good mood. Alert and oriented x3. LABORATORY DATA: Procalcitonin 1.14, albumin 2.9, lactic acid 0.8. INR 1.2. Liver enzymes within normal limits. White blood cell count 9.9, hemoglobin 8, hematocrit 25, platelets 344. Sodium 136, potassium 4.7, chloride 100, bicarb 34, BUN 47, creatinine 0.5, glucose 123. STUDIES: Chest x-ray by my own evaluation shows chronic interstitial lung disease, stable compared to old x-rays. ASSESSMENT AND PLAN: 1. Left foot ulcer with infection. I obtained a wound culture at the bedside. History of History And Physical [address] [address] NAME: ZACHARY HAQ : 53 STATUS : ADM IN [facility]#: [id number] AGE: 61 ADM/REG DATE : 01/23/17 MR#: [id number] REPORT SERV DATE: 01/24/17 DICTATED BY: JAZZ BECKETT DATE: 01/23/17 REPORT STATUS : Draft TRANSCRIBED BY: ENZO DATE: 01/23/17 MRSA. Continue IV vancomycin but also add IV cefepime. Check an MRI to rule out osteomyelitis or extensive abscess. 2. Diabetes. Hemoglobin A1c of 8.7 on 01/15/2017, continue insulin pump. 3. Cor pulmonale with diastolic congestive heart failure exacerbation. Place on IV diuretic. Provide supportive care. 4. Seronegative rheumatoid arthritis with a history of positive DESTINY. Recheck an DESTINY titer and complement levels to determine activity of possible underlying disease (?). 5. Chronic kidney disease, stage 3. 6. Anemia. KPL/MODL Jazz Beckett M.D. / [id number] CC: Elizabeth Serrano D.P.M.
[~2017-01-23 14:48] MED LIST changes: +EYE INJECTIONS IO; +REFRESH OPH; +SILVER SULFADIAZINE TOP; +VOLTAREN1 % TOP
[2017-01-23] MEDS ORDERED: VANCO1P IV (17:39)
[2017-01-23 18:56] LABS: BASOPHILS 0.2 %; BASOPHILS ABSOLUTE 0.02 10/3/uL (0.0-0.16); EOSINOPHILS 3.1 %; EOSINOPHILS ABSOLUTE 0.31 10/3/uL (0.0-0.53); ER CBC TAT 0 Hrs 07 Mins; HEMATOCRIT 25.9 % (36.0-48.0); HEMOGLOBIN 8.2 g/dL (12.0-16.0); IMMATURE GRANULOCYTES 0.5 %; IMMATURE GRANULOCYTES ABSOLUTE 0.05 10/3/uL (0.0-0.11); LYMPHOCYTES 12.7 %; LYMPHOCYTES ABSOLUTE 1.26 10/3/uL (0.67-4.30); MANUAL DIFF NO %; MEAN CORPUS HGB CONC 31.7 g/dL (32.0-36.0); MEAN CORPUSCULAR VOLUME 82.2 fL (80-100); MEAN PLATELET VOLUME 9.5 fL (9.2-13.0); MONOCYTES 6.6 %; MONOCYTES ABSOLUTE 0.66 10/3/uL (0.21-1.20); NEUTROPHILS 76.9 %; NEUTROPHILS ABSOLUTE 7.64 10/3/uL (2.02-8.40); PLATELET COUNT 344 10/3/uL (150-400); RBC DISTRIBUTION WIDTH 15.4 % (12.0-16.0); RED CELL COUNT 3.15 10/6/uL (4.0-5.6); WHITE BLOOD CELLS 9.9 10/3/uL (4.5-10.5)
[2017-01-23 19:03] LABS: INTERNATIONAL NORMAL RATI 1.2 UNITS (-); PROTIME (NOT ORD) 14.8 SEC (12.0-14.5)
[2017-01-23 19:04] LABS: PARTIAL THROMBO TIME 34.9 SEC (22.5-37.2)
[2017-01-23 19:07] LABS: A/G RATIO 0.6 (0.7-1.9); ALBUMIN 2.9 G/DL (3.5-5.0); ALKALINE PHOSPHATASE 207 U/L (45-117); BUN (BLOOD UREA NITROGEN) 47 MG/DL (6-23); CALCIUM, SERUM 9.3 MG/DL (8.5-10.4); CHLORIDE, SERUM 100 MMOL/L (96-112); CO2 (CARBON DIOXIDE) 34 MMOL/L (24-34); CREATININE 1.56 MG/DL (0.55-1.02); GFR AFRICAN AMERICAN 41 ML/MIN (>=60); GFR NON AFRICAN AMERICAN 35 ML/MIN (>=60); GLOBULIN 4.6 G/DL (2.5-4.1); GLUCOSE, SERUM 123 MG/DL (60-99); POTASSIUM, SERUM 4.7 MMOL/L (3.5-5.3); SGOT(AST) 6 U/L (5-40); SGPT(ALT) 19 U/L (5-65); SODIUM, SERUM 136 MMOL/L (135-148); TOTAL BILIRUBIN 0.3 MG/DL (0-1.2); TOTAL PROTEIN 7.5 G/DL (6.0-8.5)
[2017-01-23 19:14] LABS: LACTATE 0.8 MMOL/L (0.3-2.4)
[2017-01-23 19:43] LABS: PROCALCITONIN 0.14 ng/mL (<0.5)
[2017-01-23 22:31] LABS: ASCORBIC ACID (UR NOT ORDER) NEG (NEG); BILIRUBIN, URINE NEGATIVE (NEG); ER URINALYSIS TAT 0 Hrs 09 Mins; KETONE, URINE NEGATIVE (NEG); LEUKOCYTE ESTERASE(NOT OR NEG (NEG); NITRITE (URINE) NEG (NEG); WBC (NOT ORDERED) (RFLEX) < 1 (0-5)
[2017-01-24 05:43] LABS: INTERNATIONAL NORMAL RATI 1.2 UNITS (-); PARTIAL THROMBO TIME 38.5 SEC (22.5-37.2); PROTIME (NOT ORD) 15.5 SEC (12.0-14.5)
[2017-01-24 05:45] LABS: BASOPHILS 0.3 %; BASOPHILS ABSOLUTE 0.03 10/3/uL (0.0-0.16); EOSINOPHILS 3.1 %; EOSINOPHILS ABSOLUTE 0.28 10/3/uL (0.0-0.53); HEMATOCRIT 27.7 % (36.0-48.0); HEMOGLOBIN 8.4 g/dL (12.0-16.0); IMMATURE GRANULOCYTES 0.7 %; IMMATURE GRANULOCYTES ABSOLUTE 0.06 10/3/uL (0.0-0.11); LYMPHOCYTES 14.3 %; LYMPHOCYTES ABSOLUTE 1.31 10/3/uL (0.67-4.30); MEAN CORPUS HGB CONC 30.3 g/dL (32.0-36.0); MEAN CORPUSCULAR HEMOGLOB 25.1 pg (26.0-34.0); MEAN CORPUSCULAR VOLUME 82.7 fL (80-100); MEAN PLATELET VOLUME 9.7 fL (9.2-13.0); MONOCYTES 5.6 %; MONOCYTES ABSOLUTE 0.51 10/3/uL (0.21-1.20); NEUTROPHILS ABSOLUTE 6.98 10/3/uL (2.02-8.40); PLATELET COUNT 381 10/3/uL (150-400); RBC DISTRIBUTION WIDTH 15.4 % (12.0-16.0); RED CELL COUNT 3.35 10/6/uL (4.0-5.6); WHITE BLOOD CELLS 9.2 10/3/uL (4.5-10.5)
[2017-01-24 05:46] LABS: MANUAL DIFF NO %
[2017-01-24 06:06] LABS: A/G RATIO 0.6 (0.7-1.9); ALBUMIN 2.9 G/DL (3.5-5.0); ALKALINE PHOSPHATASE 164 U/L (45-117); BUN (BLOOD UREA NITROGEN) 42 MG/DL (6-23); CALCIUM, SERUM 9.9 MG/DL (8.5-10.4); CHLORIDE, SERUM 99 MMOL/L (96-112); CO2 (CARBON DIOXIDE) 30 MMOL/L (24-34); CREATININE 1.49 MG/DL (0.55-1.02); GFR AFRICAN AMERICAN 43 ML/MIN (>=60); GFR NON AFRICAN AMERICAN 37 ML/MIN (>=60); GLOBULIN 4.9 G/DL (2.5-4.1); GLUCOSE, SERUM 171 MG/DL (60-99); PHOSPHORUS, SERUM 3.7 MG/DL (2.5-4.5); POTASSIUM, SERUM 4.4 MMOL/L (3.5-5.3); SGOT(AST) 11 U/L (5-40); SGPT(ALT) 16 U/L (5-65); SODIUM, SERUM 136 MMOL/L (135-148); TOTAL BILIRUBIN 0.3 MG/DL (0-1.2); TOTAL PROTEIN 7.8 G/DL (6.0-8.5); TROPONIN I <0.02 NG/ML (<0.05)
[2017-01-24 06:19] LABS: PROCALCITONIN 0.07 ng/mL (<0.5)
[2017-01-24 17:29] LABS: ALLENS TEST Pos; BE (BASE EXCESS) 5.5 MEQ/L (0 +/- 2.5); CARBOXYHEMOGLOBIN 1.2 % (0-3); INSTRUMENT SERIAL # 8083; METHEMOGLOBIN 0.3 % (0-3); O2 CONTENT 11.8 VOL% (18-24); PCO2 (CO2 TENSION) 44 MMHG (35-45); PO2 (O2 TENSION) 71 MMHG (79-93); SAMPLE Arterial; pH 7.45 (7.37-7.43)
[2017-01-25 06:57] LABS: BASOPHILS 0.5 %; BASOPHILS ABSOLUTE 0.04 10/3/uL (0.0-0.16); EOSINOPHILS 3.8 %; EOSINOPHILS ABSOLUTE 0.28 10/3/uL (0.0-0.53); HEMATOCRIT 26.7 % (36.0-48.0); HEMOGLOBIN 8.2 g/dL (12.0-16.0); IMMATURE GRANULOCYTES 0.7 %; IMMATURE GRANULOCYTES ABSOLUTE 0.05 10/3/uL (0.0-0.11); LYMPHOCYTES 23.3 %; LYMPHOCYTES ABSOLUTE 1.72 10/3/uL (0.67-4.30); MEAN CORPUS HGB CONC 30.7 g/dL (32.0-36.0); MEAN CORPUSCULAR HEMOGLOB 25.3 pg (26.0-34.0); MEAN CORPUSCULAR VOLUME 82.4 fL (80-100); MEAN PLATELET VOLUME 9.5 fL (9.2-13.0); MONOCYTES 6.2 %; MONOCYTES ABSOLUTE 0.46 10/3/uL (0.21-1.20); NEUTROPHILS 65.5 %; NEUTROPHILS ABSOLUTE 4.82 10/3/uL (2.02-8.40); PLATELET COUNT 381 10/3/uL (150-400); RBC DISTRIBUTION WIDTH 15.4 % (12.0-16.0); RED CELL COUNT 3.24 10/6/uL (4.0-5.6); WHITE BLOOD CELLS 7.4 10/3/uL (4.5-10.5)
[2017-01-25 07:00] LABS: MANUAL DIFF NO %
[2017-01-25 07:12] LABS: A/G RATIO 0.6 (0.7-1.9); ALBUMIN 2.9 G/DL (3.5-5.0); ALKALINE PHOSPHATASE 177 U/L (45-117); BUN (BLOOD UREA NITROGEN) 40 MG/DL (6-23); CHLORIDE, SERUM 97 MMOL/L (96-112); CO2 (CARBON DIOXIDE) 31 MMOL/L (24-34); CREATININE 1.58 MG/DL (0.55-1.02); GFR AFRICAN AMERICAN 40 ML/MIN (>=60); GFR NON AFRICAN AMERICAN 35 ML/MIN (>=60); GLOBULIN 4.9 G/DL (2.5-4.1); GLUCOSE, SERUM 317 MG/DL (60-99); POTASSIUM, SERUM 4.8 MMOL/L (3.5-5.3); SGOT(AST) 7 U/L (5-40); SGPT(ALT) 13 U/L (5-65); SODIUM, SERUM 136 MMOL/L (135-148); TOTAL BILIRUBIN 0.3 MG/DL (0-1.2); TOTAL PROTEIN 7.8 G/DL (6.0-8.5)
[2017-01-25] MEDS ORDERED: SANTYL TOP (16:56)
[2017-05-30] MEDS ORDERED: COREG6 PO (13:35)
[2017-05-30] MEDS ORDERED: L40 PO (13:35)
[2017-05-30] MEDS ORDERED: MYCOSOINT TOP (13:36)
[2017-05-30] MEDS ORDERED: ILEVRO1.7 ML OPH (13:36)
[2017-05-30] MEDS ORDERED: PREV30 PO (13:37)
[2017-05-30] MEDS ORDERED: PAXIL40 MG PO (13:37)
[2017-05-30] MEDS ORDERED: TRESIBA FL200 UNIT/1 SC (13:37)
[2017-05-30] MEDS ORDERED: MIRAPEX1.5 MG PO (13:38)
[2017-05-30] MEDS ORDERED: TRAZ100 PO (13:38)
[2017-05-30] MEDS ORDERED: NOVOPEN SC (13:38)
[2017-05-30] MEDS ORDERED: EZFE 200200 MG PO (13:39)
== END 2017-01-25 19:27 | disposition home health service (06) | DRG 637 ==
LOC: ER 14:48 → 7NO 21:28
PROVIDERS: Hospitalist; Physician Assistant
DX: E11.621 Type 2 diabetes mellitus with foot ulcer (principal); I50.33 Acute on chronic diastolic (congestive) heart failure; L97.529 Non-pressure chronic ulcer of other part of left foot with unspecified severity; E11.22 Type 2 diabetes mellitus with diabetic chronic kidney disease; Z68.43 Body mass index [BMI] 50.0-59.9, adult; L03.116 Cellulitis of left lower limb; E11.9 Type 2 diabetes mellitus without complications; D63.1 Anemia in chronic kidney disease; N18.3 Chronic kidney disease, stage 3 (moderate); Z96.41 Presence of insulin pump (external) (internal); Z79.4 Long term (current) use of insulin; G47.33 Obstructive sleep apnea (adult) (pediatric); E66.01 Morbid (severe) obesity due to excess calories; G25.81 Restless legs syndrome; M06.00 Rheumatoid arthritis without rheumatoid factor, unspecified site; Z86.14 Personal history of Methicillin resistant Staphylococcus aureus infection
CPT/HCPCS: 36600; 71010; 73630-LT; 73721-LT; 80053; 80202; 81001; 82805; 82962; 83605; 83735; 83880; 84100; 84145; 84443; 84484; 85025; 85610; 85730; 87040; 87070; 87077; 87186; 87205; 93923; 97161-GP; 99284; A9270-GY; G8978-CH-GP; G8979-CH-GP; G8980-CH-GP; J0692; J3370

== ENCOUNTER 2017-01-31 15:41 | Emergency (ER) | payer BC ==
[~2017-01-31 15:41] MED LIST changes: +SANTYL TOP; +VANCO1P IV
[2017-01-31 16:02] LABS: BASOPHILS 0.4 %; BASOPHILS ABSOLUTE 0.04 10/3/uL (0.0-0.16); EOSINOPHILS 2.9 %; EOSINOPHILS ABSOLUTE 0.27 10/3/uL (0.0-0.53); ER CBC TAT 0 Hrs 05 Mins; HEMATOCRIT 27.8 % (36.0-48.0); HEMOGLOBIN 8.8 g/dL (12.0-16.0); IMMATURE GRANULOCYTES 0.4 %; IMMATURE GRANULOCYTES ABSOLUTE 0.04 10/3/uL (0.0-0.11); LYMPHOCYTES 16.8 %; LYMPHOCYTES ABSOLUTE 1.58 10/3/uL (0.67-4.30); MEAN CORPUS HGB CONC 31.7 g/dL (32.0-36.0); MEAN CORPUSCULAR HEMOGLOB 25.9 pg (26.0-34.0); MEAN CORPUSCULAR VOLUME 81.8 fL (80-100); MONOCYTES 5.2 %; MONOCYTES ABSOLUTE 0.49 10/3/uL (0.21-1.20); NEUTROPHILS 74.3 %; NEUTROPHILS ABSOLUTE 7.01 10/3/uL (2.02-8.40); PLATELET COUNT 314 10/3/uL (150-400); RBC DISTRIBUTION WIDTH 15.3 % (12.0-16.0); WHITE BLOOD CELLS 9.4 10/3/uL (4.5-10.5)
[2017-01-31 16:03] LABS: MANUAL DIFF NO %
[2017-01-31 16:16] LABS: BUN (BLOOD UREA NITROGEN) 47 MG/DL (6-23); CALCIUM, SERUM 9.5 MG/DL (8.5-10.4); CHLORIDE, SERUM 101 MMOL/L (96-112); CO2 (CARBON DIOXIDE) 34 MMOL/L (24-34); CREATININE 1.56 MG/DL (0.55-1.02); GFR AFRICAN AMERICAN 41 ML/MIN (>=60); GFR NON AFRICAN AMERICAN 35 ML/MIN (>=60); GLUCOSE, SERUM 160 MG/DL (60-99); POTASSIUM, SERUM 4.8 MMOL/L (3.5-5.3); SODIUM, SERUM 137 MMOL/L (135-148)
[2017-05-30] MEDS ORDERED: L40 PO (13:35)
[2017-05-30] MEDS ORDERED: COREG6 PO (13:35)
[2017-05-30] MEDS ORDERED: MYCOSOINT TOP (13:36)
[2017-05-30] MEDS ORDERED: ILEVRO1.7 ML OPH (13:36)
[2017-05-30] MEDS ORDERED: PAXIL40 MG PO (13:37)
[2017-05-30] MEDS ORDERED: TRESIBA FL200 UNIT/1 SC (13:37)
[2017-05-30] MEDS ORDERED: PREV30 PO (13:37)
[2017-05-30] MEDS ORDERED: MIRAPEX1.5 MG PO (13:38)
[2017-05-30] MEDS ORDERED: TRAZ100 PO (13:38)
[2017-05-30] MEDS ORDERED: NOVOPEN SC (13:38)
[2017-05-30] MEDS ORDERED: EZFE 200200 MG PO (13:39)
== END 2017-01-31 18:35 | disposition home or self-care (01) ==
LOC: ER 15:41
PROVIDERS: Physician Assistant
DX: S91.302A Unspecified open wound, left foot, initial encounter (principal); E11.22 Type 2 diabetes mellitus with diabetic chronic kidney disease; N18.9 Chronic kidney disease, unspecified; I50.9 Heart failure, unspecified; G47.30 Sleep apnea, unspecified; Z88.0 Allergy status to penicillin; Z88.6 Allergy status to analgesic agent; Z88.1 Allergy status to other antibiotic agents; Z79.899 Other long term (current) drug therapy; Z79.4 Long term (current) use of insulin
CPT/HCPCS: 73630-LT; 80048; 83880; 85025; 87040; 87070; 87205; 96374; 99283; A9270-GY